=== PATIENT | male | born 1995 | race Caucasian/White ===

== ENCOUNTER → 2019-02-11 | Outpatient (CLI) | payer OTHER, BC ==
--- NOTE | 2019-02-11 15:18 | RADIOLOGY IMAGING REPORT ---
FACILITY: [facility] PATIENT NAME: Sharan Carney : 1995 MR: [id number] V: [id number] EXAM DATE: ORDERING PHYSICIAN: CHELSEA WARD TECHNOLOGIST: Location: [facility] - [place] Patient: Sharan Carney : 1995 Visit/Account:[id number] Date of Sevice: 02/11/2019 L-SPINE >4 VIEWS History: Hurt back while lifting weights. Comparison study: None. Findings: There are 5 nonrib-bearing lumbar-type vertebral bodies. Distortion of the normal lordotic curvature of the lumbar spine is related to anterior spinal listhes is at L4-5 of 5 mm. It is due to bilateral spondylolysis defects involving the pars interarticularis of L4. There are findings of loss of disc space height in the lower lumbar spine suggesting discogenic degen erative change. The sacroiliac joints are unremarkable. IMPRESSION: 1. Anterior spondylolisthesis at L4-5 of 5 mm. It is related to bilateral spondylolysis defects inv olving pars interarticularis of L4. 2. Diffuse discogenic degenerative changes throughout the lower lumbar spine involving L3-4, L4-5 an d possibly L5-S1. Report Dictated By: Jeevan Pickering MD at 02/11/2019 3:11 PM Report E-Signed By: Jeevan Pickering MD at 02/11/2019 3:13 PM WSN:[id number]
== END ==
LOC: RAD 13:47
PROVIDERS: ATTEND Emergency Medicine Sports Medicine
DX: M43.16 Spondylolisthesis, lumbar region (principal)
CPT/HCPCS: 72120